=== PATIENT | female | born 1995 | race African-American/Black ===

== ENCOUNTER 2017-03-11 19:02 | Emergency (ER) | payer OTHER ==
[~2017-03-11] VITALS: Ht 170.2 cm; Wt 75.0 kg
[2017-03-11 20:42] VITALS: BP 132/75
[2017-03-11] MEDS ORDERED: CARBAMIDE PEROXIDE 6.5% 15 ML OTIC SOLUTION AS ONE (20:45)
== END 2017-03-11 21:06 | disposition home or self-care (01) ==
LOC: EMS 19:03
DX: H61.22 Impacted cerumen, left ear (principal)
CPT/HCPCS: 69209; 99282